=== PATIENT | male | born 1975 | race Hispanic/Latino ===

== ENCOUNTER 2017-02-23 09:22 | Observation (INO) | payer OTHER ==
[~2017-02-23] VITALS: Ht 172.7 cm; Wt 112.7 kg
[2017-02-23 09:56] LABS: BASOPHILS % (AUTO) 0.7 % (0.0-5.0); EOSINOPHILS % (AUTO) 1.7 % (0.0-8.0); HEMATOCRIT 40.7 % (42-54); LYMPHOCYTES % (AUTO) 20.4 % (21.0-51.0); MEAN CORPUSCULAR HEMOGLOBIN 30.6 pg (27.0-33.0); MEAN CORPUSCULAR HGB CONC 34.3 g/dL (32.0-36.0); MEAN CORPUSCULAR VOLUME 89.3 fL (79-99); MONOCYTES % (AUTO) 9.4 % (3.0-13.0); NEUTROPHILS % (AUTO) 67.8 % (40.0-77.0); PLATELET COUNT (AUTO) 199 K/uL (130-400); RED BLOOD CELL COUNT(AUTO) 4.56 MIL/uL (4.50-6.20); RED CELL DISTRIBUTION WIDTH 13.1 % (11.0-15.5)
[2017-02-23 10:05] LABS: CARBON DIOXIDE 28 mmol/L (21-32); CHLORIDE 104 mmol/L (101-111); CREATININE 1.2 mg/dL (0.5-1.5); GLOMERULAR FILTR. RATE CALC 71 mL/min (>60); GLUCOSE,RANDOM 98 mg/dL (70-105); POTASSIUM 3.8 mmol/L (3.5-5.1); SODIUM SERUM 140 mmol/L (136-145); UREA NITROGEN, BLOOD 16 mg/dL (7-18)
[2017-02-23 10:20] LABS: ALANINE AMINOTRANSFERASE 154 U/L (12-78); ALBUMIN 3.7 g/dL (3.5-5.0); ASPARTATE AMINOTRANSFERASE 53 U/L (10-37); BILIRUBIN,TOTAL 0.5 mg/dL (0.2-1.0); CREATINE KINASE MB < 0.5 ng/mL (0.5-3.6); TOTAL PROTEIN, SERUM 7.3 g/dL (6.0-8.3)
[2017-02-23 10:25] LABS: CREATINE KINASE, TOTAL 409 U/L (21-232)
[2017-02-23] MEDS ORDERED: ASPIRIN 81MG TAB.CHEW ONE (10:57)
[2017-02-23] MEDS ORDERED: NITROGLYCERIN 1GM/1 INCH PACKET TD ONE (10:58)
[2017-02-23] MEDS ORDERED: ENOXAPARIN SODIUM 100 MG/1 ML SQ ONE (11:33)
[2017-02-23 16:45] VITALS: BP 117/53
[2017-02-23] MEDS ORDERED: METO50TA18 PO (17:04)
[2017-02-23] MEDS ORDERED: LISINOPRIL PO (17:04)
[2017-02-23] MEDS ORDERED: LISI1TAB13 PO (17:06)
[2017-02-23 17:15] LABS: CREATINE KINASE MB < 0.5 ng/mL (0.5-3.6); CREATINE KINASE, TOTAL 325 U/L (21-232)
[2017-02-23] MEDS ORDERED: FLU VACC QS2017-18 36MOS UP/PF 60 MCG/0.5 ML ML IM SCH (18:00)
[2017-02-23] MEDS ORDERED: LOSA50TA37 PO (18:55)
[2017-02-23 19:58] VITALS: BP 115/66
[2017-02-23] MEDS: ACETAMINOPHEN 325 MG TAB PO PRN (20:32)
[2017-02-23] MEDS: SODIUM CHLORIDE 0.9% 1000ML 1,000 ML IV SCH (21:27)
[2017-02-23] MEDS: METOPROLOL TARTRATE 25 MG TAB PO SCH (21:27)
[2017-02-24] VITALS: BP 107/55
[2017-02-24 03:59] VITALS: BP 104/61
[2017-02-24 05:04] LABS: HEMOGLOBIN A1C 5.8 % (4.0-6.0)
[2017-02-24 05:11] LABS: ALBUMIN 3.3 g/dL (3.5-5.0); BILIRUBIN,TOTAL 0.5 mg/dL (0.2-1.0); CREATININE 1.2 mg/dL (0.5-1.5); POTASSIUM 3.6 mmol/L (3.5-5.1); TOTAL PROTEIN, SERUM 6.6 g/dL (6.0-8.3)
[2017-02-24] MEDS: SODIUM CHLORIDE 0.9% 1000ML 1,000 ML IV SCH (06:35)
[2017-02-24 07:17] VITALS: BP 118/69
[2017-02-24] MEDS ORDERED: ASPIRIN 325MG EC TAB 325 MG TABLET.DR PO SCH (09:00)
[2017-02-24] MEDS ORDERED: LISINOPRIL 20 MG TABLET PO SCH (09:00)
[2017-02-24] MEDS ORDERED: PANTOPRAZOLE SODIUM 40 MG TABLET.DR PO SCH (09:00)
[2017-02-24] MEDS ORDERED: ENOXAPARIN SODIUM 40 MG/0.4 ML SYRINGE SQ SCH (09:00)
[2017-02-24] MEDS ORDERED: LOSARTAN 50 MG TABLET PO SCH (09:00)
[2017-02-24] MEDS: METOPROLOL TARTRATE 25 MG TAB PO SCH (09:40)
[2017-02-24] MEDS: REGADENOSON 0.4 MG/5 ML PF SYG IVP SCH ×2 (10:15→15:20)
[2017-02-24 11:19] VITALS: BP 111/64
[2017-02-24] MEDS: ACETAMINOPHEN 325 MG TAB PO PRN (15:14)
[2017-02-24 16:40] VITALS: BP 124/64
== END 2017-02-24 18:30 | disposition home or self-care (01) ==
LOC: EDH 09:22 → EDHIP 11:10 → 2DH 16:10
PROVIDERS: ADMIT Family Medicine; ATTEND Family Medicine
DX: R07.89 Other chest pain (principal); R60.9 Edema, unspecified; I10 Essential (primary) hypertension; E66.01 Morbid (severe) obesity due to excess calories; E78.5 Hyperlipidemia, unspecified; Z82.49 Family history of ischemic heart disease and other diseases of the circulatory system; F41.9 Anxiety disorder, unspecified; R79.89 Other specified abnormal findings of blood chemistry; Z79.899 Other long term (current) drug therapy; Z23 Encounter for immunization
CPT/HCPCS: 36415 ×2; 71045; 78452; 80053 ×2; 80061; 82550 ×2; 82553 ×2; 83036; 84484 ×2; 85025; 93005; 93017; 96360; 96361 ×2; 96372; 99291; A9500 ×2; G0008; G0378 ×31; J1650 ×2; J2785; J7030; Q2038; 96374

== ENCOUNTER → 2017-02-23 | Outpatient (CLI) | payer OTHER ==
[~2017-02-23] MED LIST: LISI1TAB13 PO; LISINOPRIL PO; LOSA50TA37 PO; METO50TA18 PO
== END | disposition home or self-care (01) ==
LOC: SHCH 10:00
PROVIDERS: ATTEND Internal Medicine Cardiovascular Disease
DX: I10 Essential (primary) hypertension (principal)
CPT/HCPCS: 93306

== ENCOUNTER → 2017-03-16 | Outpatient (CLI) | payer OTHER ==
[~2017-03-16] MED LIST changes: -LISI1TAB13 PO; -LISINOPRIL PO
== END | disposition home or self-care (01) ==
LOC: OIH 14:13
PROVIDERS: ATTEND Internal Medicine Cardiovascular Disease
DX: Z13.6 Encounter for screening for cardiovascular disorders (principal)
CPT/HCPCS: 75571

== ENCOUNTER → 2017-06-29 | Outpatient (CLI) | payer OTHER | END | disposition home or self-care (01) | LOC: SHCH 10:08 | PROVIDERS: ATTEND Internal Medicine Cardiovascular Disease | DX: I10 Essential (primary) hypertension (principal) | CPT/HCPCS: 93975 ==

== ENCOUNTER → 2022-11-23 | Outpatient (CLI) | payer OTHER ==
[~2022-11-23] MED LIST changes: -LOSA50TA37 PO; +LOSA50TA64 PO
== END | disposition home or self-care (01) ==
LOC: OIH 14:29
PROVIDERS: ATTEND Internal Medicine Cardiovascular Disease
DX: Z13.6 Encounter for screening for cardiovascular disorders (principal); I30.9 Acute pericarditis, unspecified
CPT/HCPCS: 75571